=== PATIENT | female | born 1955 | race Caucasian/White ===

== ENCOUNTER 2016-04-12 13:41 | Emergency (ER) | payer OTHER ==
[~2016-04-12] VITALS: Ht 172.7 cm; Wt 150.1 kg
[~2016-04-12 13:41] MED LIST: ADULT LOW DOSE81 MG PO; CLONAZEPAM; CRESTOR10 MG PO; DIOVAN HCT 1601 EACH PO; DURAGESIC1 EAC1 TD; EFFEXOR; GLUCOPHAGE1000 MG PO; HUMALOG100 UNIT/1 SQ; IBUPROFEN 800800 MG PO; LANTUS SC; LOPRESSOR; NEXIUM40 MG PO; NORCO 5-325 TA1 EACH PO; ONE-A-DAY 50 P1 EACH PO; VITAMIN E800 UNIT PO; ZANTAC
[2016-04-12] MEDS ORDERED: IBUPROFEN 600600 M1 PO (15:40)
[2016-04-12] MEDS ORDERED: TIZANIDINE HCL4 MG PO (15:40)
[2016-04-12 16:00] VITALS: BP 145/86
== END 2016-04-12 16:02 | disposition home or self-care (01) ==
LOC: ER 13:41
DX: M75.51 Bursitis of right shoulder (principal); I10 Essential (primary) hypertension; E11.8 Type 2 diabetes mellitus with unspecified complications; Z79.4 Long term (current) use of insulin; E78.5 Hyperlipidemia, unspecified; K21.9 Gastro-esophageal reflux disease without esophagitis; Z88.6 Allergy status to analgesic agent; Z88.1 Allergy status to other antibiotic agents; Z88.0 Allergy status to penicillin

== ENCOUNTER → 2016-08-13 | Outpatient (CLI) | payer OTHER ==
[~2016-08-13] MED LIST changes: +IBUPROFEN 600600 M1 PO; +TIZANIDINE HCL4 MG PO
== END ==
LOC: CAT 12:45
DX: R91.1 Solitary pulmonary nodule (principal)

== ENCOUNTER → 2017-01-21 | Outpatient (CLI) | payer OTHER | LOC: RAD 13:14 | DX: R06.00 Dyspnea, unspecified (principal) ==

== ENCOUNTER → 2019-01-27 | Outpatient (CLI) | payer OTHER ==
[~2019-01-27] VITALS: Ht 175.3 cm; Wt 150.1 kg
[~2019-01-27] MED LIST changes: +IBU800 MG PO; +LOPRESSOR50 MG PO; +VITAMIN D-32000 UNIT PO; +VITAMIN E400 UNI4 PO
--- NOTE | 2019-01-28 16:06 | PATH ---
[facility] [address] [address] PATHOLOGY RPT PROCEDURE Name: ANNA RAWLS Room #: REG [facility].#: [id number] Admission: 01/27/19 Date of : 53 Discharge: Report #: [id number] Path Case #: [id number] [facility] Accession Number: [id number] . 01 Material submitted: . PART A: small bowel - BIOPSY SMALL BOWEL R/O CELIAC DISEASES PART B: stomach - BIOPSY GASTRITIS R/O H. PYLORI PART C: colon - POLYP AT 50CM X2 PART D: rectum - POLYP AT RECTUM . 01 Clinical history: . Pre-OP DX: Iron deficiency anemia Post-OP DX: Gastritis, hiatal hernia, colon polyps, hemorrhoids . 02 Diagnosis: A. Small bowel mucosa, small bowel rule out celiac disease, endoscopic biopsy: - No significant diagnostic abnormalities present. - Negative for villous blunting or increase in intraepithelial lymphocytes. . B. Gastric mucosa, gastritis, rule out H. pylori, endoscopic biopsy: - Mild reactive gastropathy. - Negative for intestinal metaplasia or atrophy. - Negative for Helicobacter pylori (properly-controlled immunohistochemical stain performed). . C. Polyp x2, at 50 cm, endoscopic biopsy: - Minute tubular adenoma x2. - Negative for high grade dysplasia. . D. Polyp, at rectum, endoscopic biopsy: - Tubular adenoma. - Negative for high grade dysplasia. . (IUV:mml; 01/28/2019) M 01/28/2019 1203 Local . 02 Electronically signed: . Lianet Torres MD, Pathologist NPI- [id number] . 01 Gross description: . A. Received in formalin labeled "Anna Rawls BX small bowel, rule out celiac," are 3 segments of schroeder soft tissue measuring 1.1 x 0.9 x 0.4 cm in aggregate dimensions and ranging from 0.4 to 0.6 cm in maximum dimension. The specimen is submitted entirely in [place] [address] PATHOLOGY RPT PROCEDURE Name: ANNA RAWLS Room #: REG [facility]#: [id number] Admission: 01/27/19 Date of : 53 Discharge: Report #: [id number] Path Case #: [id number] . B. Received in formalin labeled "Anna Rawls BX gastritis, rule out H. pylori," are 4 segments of schroeder soft tissue measuring 1.3 x 0.9 x 0.3 cm in aggregate dimensions and ranging from 0.4 to 0.5 cm in maximum dimension. The specimen is submitted entirely in cassette B1. . C. Received in formalin labeled "Anna Rawls, polyp at 50 cm x2," are 2 segments of schroeder soft tissue measuring 0.9 x 0.4 x 0.3 cm in aggregate dimensions and ranging from 0.4 to 0.5 cm in maximum dimension. The specimen is submitted entirely in cassette C1. . D. Received in formalin labeled "Anna Rawls, polyp at rectum," are 2 segments of schroeder soft tissue measuring 0.8 x 0.2 x 0.2 cm in aggregate dimensions and ranging from 0.2 to 0.6 cm in maximum dimension. The specimen is submitted entirely in cassette D1. (TSD; 01/27/2019) TOB/TOB 01/27/[address] [place] [address] . 02 Pathologist provided ICD-10: K31.9, D12.6, D12.8 . 02 CPT . 349870, 991403, 341634, 882592, J12322 Specimen Comment: A courtesy copy of this report has been sent to Specimen Comment: [phone], . Specimen Comment: Report sent to / DR COOK Performed at: [address], [place] [id number] MD Quoc Ortiz MD Phone: [phone] Performed at: [address] [id number] MD Lianet Torres MD Phone: [phone]
--- NOTE | 2019-01-29 14:09 | P ---
[facility] [place] [address] [place] [address] PROCEDURE REPORT Name: CINDY RAWLS Room #: REG [facility]#: [id number] Admission: 01/27/19 Attend Phys: Liam Najera MD Discharge: Date of : 53 Report #: [id number] THIS REPORT FOR: //name// CC: Liam Toth MD DATE OF SERVICE: 01/27/2019 BRIEF HISTORY: The patient is a 63-year-old woman with recent findings of iron deficiency anemia. She also has a history of colon polyps. PREOPERATIVE DIAGNOSIS: Iron deficiency anemia. POSTOPERATIVE DIAGNOSES: 1. Diminutive colon polyps. 2. Small internal hemorrhoids. MEDICATIONS: Deep sedation with propofol per Anesthesia. SPECIMENS: 1. Diminutive polyps at 50 cm x 2. 2. Rectal polyp. ESTIMATED BLOOD LOSS: 3 mL. PROCEDURE: Colonoscopy to cecum and terminal ileum with biopsy. FINDINGS: Prior to propofol sedation, procedure of colonoscopy discussed with the patient as well as potential risks and its complications. She indicates she understands and desires to proceed. DESCRIPTION OF PROCEDURE: With the patient in left lateral decubitus position, digital examination was completed, which revealed no abnormalities. Subsequently, the Olympus video colonoscope was introduced in the rectum, advanced under direct vision to the cecum. Done with minimal difficulty. The cecum was identified by the ileocecal valve and the appendiceal orifice. I was able to visualize the distal segment of the terminal ileum, which was inspected and noted to be unremarkable. At that point, the scope was slowly withdrawn and careful circumferential views were obtained. Upon slow withdrawal of the scope, the prep was good. The mucosa was within normal limits, normal vascular pattern, normal light reflex. As we withdrew the scope, no abnormalities were noted until we reached the descending colon. At 50 cm, a diminutive polyp was seen and removed with biopsy forceps. A second diminutive polyp was seen about the same level and also removed with biopsy forceps. Scope was further withdrawn and no additional abnormalities were noted until the rectum was [facility] [address] [place] [address] PROCEDURE REPORT Name: CINDY RAWLS Room #: REG [facility]#: [id number] Admission: 01/27/19 Attend Phys: Liam Najera MD Discharge: Date of : 53 Report #: [id number] reached and another diminutive polyp was seen and removed with biopsy forceps. Upon retroflexion in the rectum, small hemorrhoids were seen. Scope was withdrawn. The patient tolerated the procedure well. CONDITION OF THE PATIENT UPON DISCHARGE: Following procedure, the patient was drowsy, arousable and conversant. She will be discharged home when fully ambulatory. INSTRUCTIONS TO THE PATIENT AND FAMILY AT THE TIME OF DISCHARGE: The patient was found to have iron deficiency anemia. No bleeding lesions were seen. Vascular ectasias were not seen. She had 3 diminutive polyps, which were small and unlikely to have contributed to an iron deficiency anemia. We will follow up on the pathology of the polyps. If 3 or more adenomas, she is to return in 3 years; 1 or 2 adenomas, she should return in 5 years; if none adenomas, 10 years would be indicated. As far as her anemia, I do not see any obvious sources of blood loss. We discussed further with the patient. Please see upper endoscopy report as well. If biopsies are negative for celiac disease, small bowel capsule study may be a consideration for this patient for further evaluation of iron deficiency anemia. It would certainly be reasonable for her to take an iron supplement. Last colonoscopy was approximately 5 years ago. Withdrawal time from the cecum was 13 minutes and 5 seconds. <ELECTRONICALLY SIGNED> By: Liam Najera MD 01/29/19 1409 0850 09 Liam Najera MD /nt
--- NOTE | 2019-01-29 14:09 | P ---
[facility] [place] [address] [place] [address] PROCEDURE REPORT Name: CINDY RAWLS Room #: REG [facility]#: [id number] Admission: 01/27/19 Attend Phys: Liam Najera MD Discharge: Date of : 53 Report #: [id number] THIS REPORT FOR: //name// CC: Liam Toth M.D. OUTPATIENT UPPER ENDOSCOPY BRIEF HISTORY: The patient is a 63-year-old woman who presents with iron deficiency anemia. She also has a chronic cough, which has been attributed to reflux disease. She has been on Nexium. Her typical reflux symptoms are controlled. However, she continues to have complaints of cough. She has no peptic symptoms at this time. PREOPERATIVE DIAGNOSES: Iron deficiency anemia, reflux disease with persistent cough, on therapy. POSTOPERATIVE DIAGNOSES: 1. Small hiatus hernia. 2. Moderate diffuse gastritis. MEDICATIONS: Deep sedation with propofol per anesthesia. SPECIMENS: 1. Biopsy small bowel, rule out celiac disease. 2. Biopsies of gastritis. ESTIMATED BLOOD LOSS: 3 mL. PROCEDURE: EGD with biopsy. FINDINGS: Prior to propofol sedation, procedure of upper endoscopy was discussed with the patient as well as potential risks and its complications. She indicates she understands and desires to proceed. DESCRIPTION OF PROCEDURE: With the patient in left lateral decubitus position, the Olympus video endoscope was inserted in the cervical esophagus under direct vision without difficulty. Examination of this organ through its entire length revealed normal esophageal mucosa down the squamocolumnar junction. The squamocolumnar junction was inspected and noted to be unremarkable. There was no evidence of esophagitis or Moura's mucosa. Intermittently, a small 2 cm sliding type hiatus hernia was encountered. The mucosa of hernia was unremarkable. Scope was advanced in the stomach, was examined on end view as well as retroflexed views. There was a pattern of diffuse gastritis with long striations of erythema in the antrum. However, no ulcers or erosions were seen. There was no evidence of bleeding. Vascular ectasias were not seen. Likewise, [facility] [address] [place] [address] PROCEDURE REPORT Name: CINDY RAWLS Room #: REG [facility].#: [id number] Admission: 01/27/19 Attend Phys: Liam Najera MD Discharge: Date of : 53 Report #: [id number] upon retroflexion, no additional abnormalities were seen. Small hiatus hernia was intermittently seen. No mass lesions were seen. The pylorus, duodenal bulb and postbulbar duodenal sweep down to third portion was inspected and noted to be unremarkable. No evidence of ulcers, bleeding lesions or AVMs. Multiple small bowel biopsies were obtained. At that point, the scope was slowly withdrawn and careful circumferential views confirmed the above findings. The patient tolerated the procedure well. CONDITION OF THE PATIENT UPON DISCHARGE: Following the procedure, the patient was drowsy, prepared for colonoscopy. INSTRUCTIONS TO THE PATIENT AND FAMILY AT THE TIME OF DISCHARGE: We will follow up on biopsies regarding iron deficiency anemia. Proceed with colonoscopy as noted. With regards to her cough, I do not see endoscopic evidence of reflux disease. We will empirically have her increase her Nexium to 40 mg twice daily for at least 3 months. We will have her return to see me in followup in the office. Weight loss would be extremely beneficial to this patient as well. If cough persists, consider PH study. <ELECTRONICALLY SIGNED> By: Liam Najera MD 01/29/19 1409 0823 1900 Liam Najera MD /nt
== END | disposition home or self-care (01) ==
LOC: GI 06:53
DX: D50.9 Iron deficiency anemia, unspecified (principal); D12.8 Benign neoplasm of rectum; D12.5 Benign neoplasm of sigmoid colon; K31.9 Disease of stomach and duodenum, unspecified; K44.9 Diaphragmatic hernia without obstruction or gangrene; K21.9 Gastro-esophageal reflux disease without esophagitis; G47.30 Sleep apnea, unspecified; I10 Essential (primary) hypertension; E78.5 Hyperlipidemia, unspecified; D64.9 Anemia, unspecified; E11.9 Type 2 diabetes mellitus without complications; M54.5 Low back pain; G89.29 Other chronic pain; Z98.890 Other specified postprocedural states; Z86.010 Personal history of colon polyps; Z88.0 Allergy status to penicillin; Z79.4 Long term (current) use of insulin; Z87.891 Personal history of nicotine dependence; Z88.8 Allergy status to other drugs, medicaments and biological substances; Z79.82 Long term (current) use of aspirin; Z79.899 Other long term (current) drug therapy
CPT/HCPCS: 62110; 62900

== ENCOUNTER → 2019-06-06 | Outpatient (CLI) | payer OTHER | LOC: CAT 14:52 | DX: Z13.6 Encounter for screening for cardiovascular disorders (principal); I25.10 Atherosclerotic heart disease of native coronary artery without angina pectoris; E78.00 Pure hypercholesterolemia, unspecified ==

== ENCOUNTER → 2019-08-31 | Outpatient (CLI) | payer OTHER | LOC: SJCVCIMAG 06-27 15:30 | DX: I25.10 Atherosclerotic heart disease of native coronary artery without angina pectoris (principal); R06.02 Shortness of breath; R07.9 Chest pain, unspecified; Z87.891 Personal history of nicotine dependence ==

== ENCOUNTER → 2020-05-09 | Outpatient (CLI) | payer OTHER | LOC: SJCVC 13:56 | PROVIDERS: ATTEND Internal Medicine Cardiovascular Disease | DX: I25.10 Atherosclerotic heart disease of native coronary artery without angina pectoris (principal); I10 Essential (primary) hypertension; E78.00 Pure hypercholesterolemia, unspecified; R06.02 Shortness of breath; E11.9 Type 2 diabetes mellitus without complications; G47.33 Obstructive sleep apnea (adult) (pediatric); D50.9 Iron deficiency anemia, unspecified; E78.5 Hyperlipidemia, unspecified; Z98.890 Other specified postprocedural states; Z88.0 Allergy status to penicillin; Z88.8 Allergy status to other drugs, medicaments and biological substances; Z79.4 Long term (current) use of insulin; Z79.82 Long term (current) use of aspirin; Z79.899 Other long term (current) drug therapy; Z87.891 Personal history of nicotine dependence; Z82.49 Family history of ischemic heart disease and other diseases of the circulatory system ==

== ENCOUNTER → 2021-01-03 | Outpatient (CLI) | payer OTHER | LOC: SJCVC 11:46 | PROVIDERS: ATTEND Internal Medicine Cardiovascular Disease | DX: I25.10 Atherosclerotic heart disease of native coronary artery without angina pectoris (principal); I10 Essential (primary) hypertension; E11.9 Type 2 diabetes mellitus without complications; G47.33 Obstructive sleep apnea (adult) (pediatric); C92.00 Acute myeloblastic leukemia, not having achieved remission; E78.5 Hyperlipidemia, unspecified; Z82.49 Family history of ischemic heart disease and other diseases of the circulatory system; Z79.4 Long term (current) use of insulin; Z79.899 Other long term (current) drug therapy; Z88.0 Allergy status to penicillin; Z88.2 Allergy status to sulfonamides; Z87.891 Personal history of nicotine dependence ==

== ENCOUNTER → 2021-05-03 | Outpatient (CLI) | payer OTHER | LOC: SJCVCIMAG 11:11 | PROVIDERS: ATTEND Internal Medicine Cardiovascular Disease | DX: M79.604 Pain in right leg (principal); M79.89 Other specified soft tissue disorders ==